=== PATIENT | male | born 1975 ===

== ENCOUNTER 2019-10-29 04:11 | Emergency (ER) | payer SELFPAY ==
--- NOTE | 2019-10-29 05:27 | Cat Scan Report ---
CT HEAD WITHOUT CONTRAST INDICATION : Headache. Altered mental status. TECHNIQUE: Axial, coronal and sagittal CT imaging was performed from the skull apex through the skul l base without contrast. All CT scans at this location are performed using CT dose reduction for ALA RA by means of automated exposure control. COMPARISON: None available. FINDINGS: PARENCHYMA: No mass, midline shift, hemorrhage, extraaxial collection or acute territorial infarctio n. VENTRICLES: Symmetric and normal in size. SOFT TISSUES: No significant abnormality of the included soft tissues/orbits. BONES: No acute osseous abnormality. SINUSES: No significant abnormality. ADDITIONAL FINDINGS: None. IMPRESSION: 1. No acute intracranial abnormality. Signer Name: Delfino Sainz MD Signed: 10/29/2019 5:22 AM Workstation Name: [id number]
[2019-10-29 05:35] LABS: Basophils # (Auto) 0.1 K/mm3 (0.0-0.1); Eosinophils # (Auto) 0.2 K/mm3 (0.0-0.4); Eosinophils % (Auto) 1.9 % (0.0-4.3); Hematocrit 38.8 % (35.5-45.6); Hemoglobin 13.2 gm/dl (11.8-15.2); Lymphocytes # (Auto) 1.5 K/mm3 (1.2-5.4); Lymphocytes % (Auto) 17.4 % (13.4-35.0); Mean Corpuscular HGB Conc 34 % (32-34); Mean Corpuscular Volume 90 fl (84-94); Monocytes # (Auto) 0.6 K/mm3 (0.0-0.8); Monocytes % (Auto) 7.2 % (0.0-7.3); Platelet Count 343 K/mm3 (140-440); Red Blood Count 4.29 M/mm3 (3.65-5.03); Red Cell Distribution Width 13.8 % (13.2-15.2)
[2019-10-29 05:46] LABS: Bilirubin,Urine NEG (Negative); Blood,Urine NEG (Negative); Color,Urine Yellow (Yellow); Mucus,Urine FEW /HPF; Protein,Urine <15 mg/dL mg/dL (Negative); Urobilinogen,Urine < 2.0 mg/dL (<2.0)
[2019-10-29 05:48] LABS: BUN/Creatinine Ratio 23; Blood Urea Nitrogen 18 mg/dL (9-20); Calcium 8.7 mg/dL (8.4-10.2); Hemolysis Index 3
[2019-10-29 05:54] LABS: Benzodiazepines Screen,Urine PRESUMPTIVE NEGATIVE; Cocaine Screen,Urine PRESUMPTIVE NEGATIVE; Methadone Screen,Urine PRESUMPTIVE NEGATIVE; Opiate Screen,Urine PRESUMPTIVE NEGATIVE
[2019-10-29 06:11] LABS: Amphetamine Screen,Urine PRESUMPTIVE POSITIVE; Cannabinoid Screen,Urine PRESUMPTIVE POSITIVE
--- NOTE | 2019-10-29 10:34 | Emergency Department Report ---
ED Psych HPI - General Chief Complaint: Altered Mental Status Stated Complaint: HEADACHE Time Seen by Provider: 10/29/19 09:18 Source: business taxes specialist Mode of arrival: Stretcher Limitations: Language Barrier (Checkering Machine Operator present Ana M) - History of Present Illness Initial Comments: 44-year-old male presents emergency department via EMS complaining having a myriad of issues involving home and work. Complications involving his sister and his brother complicating his underlying psychological issues at this point he states he is hearing voices and seeing objects that are telling him to hurt his brother and sister and he plans on following up with his therapist with how he is being treated. States that he does smoke marijuana to try to calm the thoughts and to keep him focused so that he can complete his daily tasks and work activities however at the smoking marijuana earlier this morning it did not resolve his urges. He reports no headache, reports no dizziness no blurred vision no nausea no vomiting no fever no chills no sweats no tinnitus. Associated Psychiatric Symptoms: homicidal ideation, auditory hallucinations History of same: Yes Quality: constant Improves With: other (Cannabis) Context: recent drug abuse, significant life stressor Associated Symptoms: denies other symptoms Treatments Prior to Arrival: none - Related Data Home Medications Medication Instructions Recorded Confirmed Last Taken No Known Home Medications [No 10/29/19 10/29/19 Unknown Reported Home Medications] Allergies Allergy/AdvReac Type Severity Reaction Status Date / Time No Known Allergies Allergy Verified 10/29/19 10:47 ED Review of Systems ROS: Stated complaint: HEADACHE Other details as noted in HPI Comment: All other systems reviewed and negative ED Past Medical Hx - Past Medical History Previous Medical History?: No - Surgical History Past Surgical History?: No - Social History Smoking Status: Current Every Day Smoker Substance Use Type: Marijuana - Medications Home Medications: Home Medications Medication Instructions Recorded Confirmed Last Taken Type No Known Home Medications [No 10/29/19 10/29/19 Unknown History Reported Home Medications] ED Physical Exam - General Limitations: Language Barrier General appearance: alert, in no apparent distress - Head Head exam: Present: atraumatic, normocephalic - Eye Eye exam: Present: normal appearance - ENT ENT exam: Present: mucous membranes moist - Neck Neck exam: Present: normal inspection - Respiratory Respiratory exam: Present: normal lung sounds bilaterally. Absent: respiratory distress - Cardiovascular Cardiovascular Exam: Present: regular rate, normal rhythm. Absent: systolic murmur, diastolic murmur, rubs, gallop - GI/Abdominal GI/Abdominal exam: Present: soft, normal bowel sounds - Rectal Rectal exam: Present: deferred - Extremities Exam Extremities exam: Present: normal inspection - Back Exam Back exam: Present: normal inspection - Neurological Exam Neurological exam: Present: alert, oriented X3, CN II-XII intact - Psychiatric Psychiatric exam: Present: normal affect, anxious, homicidal ideation - Skin Skin exam: Present: warm, dry, intact, normal color. Absent: rash ED Course Vital Signs 10/29/19 10/29/19 04:18 09:15 Temperature 97.7 F Pulse Rate 77 88 Respiratory 18 16 Rate Blood Pressure 105/63 Blood Pressure 106/69 [Left] O2 Sat by Pulse 100 96 Oximetry ED Medical Decision Making - Lab Data Result diagrams: 10/29/19 05:12 10/29/19 05:12 Lab Results 10/29/19 10/29/19 10/29/19 Range/Units 05:12 05:12 05:12 WBC (4.5-11.0) K/mm3 RBC (3.65-5.03) M/mm3 Hgb (11.8-15.2) gm/dl Hct (35.5-45.6) % MCV (84-94) fl MCH (28-32) pg MCHC (32-34) % RDW (13.2-15.2) % Plt Count (140-440) K/mm3 Lymph % (Auto) (13.4-35.0) % Carolina % (Auto) (0.0-7.3) % Eos % (Auto) (0.0-4.3) % Baso % (Auto) (0.0-1.8) % Lymph # (1.2-5.4) K/mm3 Carolina # (0.0-0.8) K/mm3 Eos # (0.0-0.4) K/mm3 Baso # (0.0-0.1) K/mm3 Seg Neutrophils % (40.0-70.0) % Seg Neutrophils # (1.8-7.7) K/mm3 Sodium 138 (137-145) mmol/L Potassium 4.2 (3.6-5.0) mmol/L Chloride 101.9 (98-107) mmol/L Carbon Dioxide 24 (22-30) mmol/L Anion Gap 16 mmol/L BUN 18 (9-20) mg/dL Creatinine 0.8 (0.8-1.5) mg/dL Estimated GFR > 60 ml/min BUN/Creatinine Ratio 23 % Glucose 100 (75-100) mg/dL Calcium 8.7 (8.4-10.2) mg/dL Urine Color (Yellow) Urine Turbidity (Clear) Urine pH (5.0-7.0) Ur Specific Greene (1.003-1.030) Urine Protein (Negative) mg/dL Urine Glucose (UA) (Negative) mg/dL Urine Ketones (Negative) mg/dL Urine Blood (Negative) Urine Nitrite (Negative) Urine Bilirubin (Negative) Urine Urobilinogen (<2.0) mg/dL Ur Leukocyte Esterase (Negative) Urine WBC (Auto) (0.0-6.0) /HPF Urine RBC (Auto) (0.0-6.0) /HPF Urine Mucus /HPF Salicylates < 0.3 L (2.8-20.0) mg/dL Urine Opiates Screen Urine Methadone Screen Acetaminophen < 5.0 L (10.0-30.0) ug/mL Ur Barbiturates Screen Ur Phencyclidine Scrn Ur Amphetamines Screen U Benzodiazepines Scrn Urine Cocaine Screen U Marijuana (THC) Screen Drugs of Abuse Note Plasma/Serum Alcohol (0-0.07) % 10/29/19 10/29/19 10/29/19 Range/Units 05:12 05:12 Unknown WBC 8.7 (4.5-11.0) K/mm3 RBC 4.29 (3.65-5.03) M/mm3 Hgb 13.2 (11.8-15.2) gm/dl Hct 38.8 (35.5-45.6) % MCV 90 (84-94) fl MCH 31 (28-32) pg MCHC 34 (32-34) % RDW 13.8 (13.2-15.2) % Plt Count 343 (140-440) K/mm3 Lymph % (Auto) 17.4 (13.4-35.0) % Carolina % (Auto) 7.2 (0.0-7.3) % Eos % (Auto) 1.9 (0.0-4.3) % Baso % (Auto) 1.0 (0.0-1.8) % Lymph # 1.5 (1.2-5.4) K/mm3 Carolina # 0.6 (0.0-0.8) K/mm3 Eos # 0.2 (0.0-0.4) K/mm3 Baso # 0.1 (0.0-0.1) K/mm3 Seg Neutrophils % 72.5 H (40.0-70.0) % Seg Neutrophils # 6.3 (1.8-7.7) K/mm3 Sodium (137-145) mmol/L Potassium (3.6-5.0) mmol/L Chloride (98-107) mmol/L Carbon Dioxide (22-30) mmol/L Anion Gap mmol/L BUN (9-20) mg/dL Creatinine (0.8-1.5) mg/dL Estimated GFR ml/min BUN/Creatinine Ratio % Glucose (75-100) mg/dL Calcium (8.4-10.2) mg/dL Urine Color Yellow (Yellow) Urine Turbidity Clear (Clear) Urine pH 6.0 (5.0-7.0) Ur Specific Greene 1.017 (1.003-1.030) Urine Protein <15 mg/dl (Negative) mg/dL Urine Glucose (UA) Neg (Negative) mg/dL Urine Ketones Neg (Negative) mg/dL Urine Blood Neg (Negative) Urine Nitrite Neg (Negative) Urine Bilirubin Neg (Negative) Urine Urobilinogen < 2.0 (<2.0) mg/dL Ur Leukocyte Esterase Neg (Negative) Urine WBC (Auto) 1.0 (0.0-6.0) /HPF Urine RBC (Auto) 2.0 (0.0-6.0) /HPF Urine Mucus Few /HPF Salicylates (2.8-20.0) mg/dL Urine Opiates Screen Urine Methadone Screen Acetaminophen (10.0-30.0) ug/mL Ur Barbiturates Screen Ur Phencyclidine Scrn Ur Amphetamines Screen U Benzodiazepines Scrn Urine Cocaine Screen U Marijuana (THC) Screen Drugs of Abuse Note Plasma/Serum Alcohol < 0.01 (0-0.07) % 10/29/19 Range/Units Unknown WBC (4.5-11.0) K/mm3 RBC (3.65-5.03) M/mm3 Hgb (11.8-15.2) gm/dl Hct (35.5-45.6) % MCV (84-94) fl MCH (28-32) pg MCHC (32-34) % RDW (13.2-15.2) % Plt Count (140-440) K/mm3 Lymph % (Auto) (13.4-35.0) % Carolina % (Auto) (0.0-7.3) % Eos % (Auto) (0.0-4.3) % Baso % (Auto) (0.0-1.8) % Lymph # (1.2-5.4) K/mm3 [place] # (0.0-0.8) K/mm3 Eos # (0.0-0.4) K/mm3 Baso # (0.0-0.1) K/mm3 Seg Neutrophils % (40.0-70.0) % Seg Neutrophils # (1.8-7.7) K/mm3 Sodium (137-145) mmol/L Potassium (3.6-5.0) mmol/L Chloride (98-107) mmol/L Carbon Dioxide (22-30) mmol/L Anion Gap mmol/L BUN (9-20) mg/dL Creatinine (0.8-1.5) mg/dL Estimated GFR ml/min BUN/Creatinine Ratio % Glucose (75-100) mg/dL Calcium (8.4-10.2) mg/dL Urine Color (Yellow) Urine Turbidity (Clear) Urine pH (5.0-7.0) Ur Specific Greene (1.003-1.030) Urine Protein (Negative) mg/dL Urine Glucose (UA) (Negative) mg/dL Urine Ketones (Negative) mg/dL Urine Blood (Negative) Urine Nitrite (Negative) Urine Bilirubin (Negative) Urine Urobilinogen (<2.0) mg/dL Ur Leukocyte Esterase (Negative) Urine WBC (Auto) (0.0-6.0) /HPF Urine RBC (Auto) (0.0-6.0) /HPF Urine Mucus /HPF Salicylates (2.8-20.0) mg/dL Urine Opiates Screen Presumptive negative Urine Methadone Screen Presumptive negative Acetaminophen (10.0-30.0) ug/mL Ur Barbiturates Screen Presumptive negative Ur Phencyclidine Scrn Presumptive negative Ur Amphetamines Screen Presumptive positive U Benzodiazepines Scrn Presumptive negative Urine Cocaine Screen Presumptive negative U Marijuana (THC) Screen Presumptive positive Drugs of Abuse Note Disclamer Plasma/Serum Alcohol (0-0.07) % - Medical Decision Making This patient presents to the emergency department with symptoms consistent with an underlying psychiatric disorder most likely acute psychosis. Differential diagnosis includes schizophrenia, depression, illicit drug dependency, ma lignancy. The patient's presentation is not consistent with acute organic causes to include delirium, dementia or drug-induced disorders. Given HPI suspect this patient is homicidal and gravely disabled and will require psychiatric care.. We consulted psychiatry to evaluate the patient for potential hold and obtain labs for medical clearance. After evaluation in the emergency department for a psychiatric disease, no findings exacerbating or causing the psychiatric complaint. This patient de monstrates no contributing medical instability or "condition facilitating this psychiatric presentation. See the accompanying mental health corporate responsibility officer's note for more detail Critical care attestation.: If time is entered above; I have spent that time in minutes in the direct care of this critically ill patient, excluding procedure time. ED Disposition Clinical Impression: Psychosis Is pt being admited?: No Does the pt Need Aspirin: No Condition: Stable Instructions: Cannabis Abuse (ED), Mood Disorders (ED), Medical Clearance for Psychiatric Care (ED) Referrals: PRIMARY CARE, [Primary Care Provider] - 3-5 Days
--- NOTE | 2019-10-30 14:53 | Consultation ---
History of Present Illness - Reason for Consult Consult date: 10/30/19 Reason for consult: psychiatric assessment - History of Present Psychiatric Illness mr wilson is a 44-year-old male he is alert oriented x1 the patient is noted irritable and refuses to answer questions, he states, "I told you guys everything already. He then stated, "my friend called 911 because he think i was hearing voices". The patient denies suicidal or homicidal ideations, 80s denies visual or auditory hallucinations. The patient denies being depressed he states, by showing me his muscles "I am a strong man". This feature writer continue to ask the patient questions but the patient states, "what do you guys think i am not answering any questions I will stay here as long as you want me to stay". The patient is not forthcoming with answers, the patient became agitated and hyperverbal unable to ask further questions. The patient reports that he smokes marijuana daily to calm himself. PAST PSYCHIATRIC HISTORY: Diagnoses: Acute psychosis Suicide attempts or Self-harm behavior: denies Prior psychiatric hospitalizations: denies Substance Abuse history: Marijuana Previous psychiatric medications tried: Denies Outpatient treatment: Denies PAST MEDICAL HISTORY: Family Psychiatric History None reported or documented SOCIAL HISTORY Marital Status: Single Living Arrangements: Self Employment Status: Unemployed Access to guns/weapons: Denies Education: Refused to answer History of Abuse: Denies Legal History: refuse to answer ROS: Constitutional: Negative for weight loss ENT: Negative for stridor Respiratory: Negative for cough or hemoptysis All other systems reviewed and are negative MENTAL STATUS General Appearance and Behavior: age appropriate, good eye contact, cooperative with questioning and polite Cooperation: uncooperative Psychomotor Behavior: rocking Mood: agitated Affect and affective range: Congruent with stated mood Thought Process: Fluent/Logical and Goal-directed Thought Content: Within reality Speech: hyperverbal Intellectual Functioning Average Suicidal Ideation: Denies SI Homicidal Ideation: Denies HI Impulse Control: intact Insight and Judgment: poor Memory: Normal Attention: Normal RECOMMENDATIONS MEDICATIONS: Risks, benefits and alternatives of medications discussed with the patient, questions answered and consent obtained from patient. PSYCHOTHERAPY: Supportive psychotherapy provided MEDICAL: Per primary team DELIRIUM PRECAUTIONS: Please re-orient patient frequently, keep lights on during the day, and minimize benzodiazepines and opiates as these medications could worsen patient's confusion. PLUSH DRESSER: DISPOSITION: no indication for acute inpatient psychiatric hospitalization at this time, will see the patient tomorrow to see if he will open up further. LEGAL STATUS: FOLLOW-UP: Will follow Medications and Allergies Allergies Allergy/AdvReac Type Severity Reaction Status Date / Time No Known Allergies Allergy Verified 10/29/19 10:47 Home Medications Medication Instructions Recorded Confirmed Last Taken Type No Known Home Medications [No 10/29/19 10/29/19 Unknown History Reported Home Medications] Mental Status Exam - Vital signs Last Vital Signs Temp 97.9 F 10/30/19 13:00 Pulse 62 10/30/19 13:00 Resp 18 10/30/19 13:00 BP 110/68 10/30/19 13:00 Pulse Ox 98 10/30/19 13:00 Results Result Diagrams: 10/29/19 05:12 10/29/19 05:12 All other labs normal.
--- NOTE | 2019-10-31 13:21 | Progress Note ---
Subjective - Reason for Consult Consult date: 10/31/19 Reason for consult: psychiatric assessment - Chief Complaint Chief complaint: mr wilson is a 44-year-old male he is alert oriented x1 in bed with eyes closed easily aroused. The patient is noted irritable and refuses to answer questions he states, your back I am still the same nothing is change, I do not trust you guys". When asked about suicidal ideation the patient stated, "what stupid question is that, I am the same person go away". Patient got up and start making his bed continue cursing in his [place] language. Unable to interview patient further. The patient is easily offended he is defensive hostile and aggressive and noted with anxiety. Per chart family report patient responding to internal stimuli. ROS: Constitutional: Negative for weight loss ENT: Negative for stridor Respiratory: Negative for cough or hemoptysis All other systems reviewed and are negative MENTAL STATUS General Appearance and Behavior: age appropriate, good eye contact, Cooperation: uncooperative Psychomotor Behavior: pacing Mood: agitated Affect and affective range: Congruent with stated mood Thought Process: concrete Thought Content: guarded Speech: hyperverbal Intellectual Functioning Average Suicidal Ideation: Denies SI Homicidal Ideation: Denies HI Impulse Control: intact Insight and Judgment: poor Memory: Normal Attention: Normal RECOMMENDATIONS MEDICATIONS: Start Risperdal 0.25 mg twice daily Start BuSpar 7.5 mg twice daily Melatonin 10 mg as needed Risks, benefits and alternatives of medications discussed with the patient, questions answered and consent obtained from patient. PSYCHOTHERAPY: Supportive psychotherapy provided MEDICAL: Per primary team DELIRIUM PRECAUTIONS: Please re-orient patient frequently, keep lights on during the day, and minimize benzodiazepines and opiates as these medications could worsen patient's confusion. CLINICAL SUPPORT ASSOCIATE: DISPOSITION: Indication for inpatient psychiatric hospitalization at this time patient is paranoid. aggressive LEGAL STATUS: 1013 FOLLOW-UP: Will follow Mental Status Exam - Vital signs Last Vital Signs Temp 98.4 F 10/31/19 07:00 Pulse 56 L 10/31/19 07:00 Resp 14 10/31/19 07:00 BP 110/63 10/31/19 07:00 Pulse Ox 98 10/31/19 07:00
[2019-10-31] MEDS ORDERED: MELATONIN 5 MG TAB PO PRN (13:38)
[2019-10-31] MEDS ORDERED: busPIRone 5 MG TAB PO SCH (22:00)
[2019-10-31] MEDS ORDERED: risperiDONE 0.25 MG TAB PO SCH (22:00)
[2019-11-01 02:01] VITALS: BP 110/60
== END 2019-11-01 02:45 ==
LOC: ED 04:11
DX: R44.0 Auditory hallucinations (principal); R45.850 Homicidal ideations; R51 Headache; F17.200 Nicotine dependence, unspecified, uncomplicated; F12.10 Cannabis abuse, uncomplicated
CPT/HCPCS: 36415; 70450; 80048; 80307; 80320; 81001; 85025; G0480

== ENCOUNTER 2020-11-01 12:45 | Emergency (ER) | payer SELFPAY ==
[2020-11-01 13:13] VITALS: BP 129/75
[2020-11-01] MEDS ORDERED: DIPHtheria,PERTUSSIS(ACELL),TETANUS VACCINE/PF 0.5 ML VIAL IM ONE (13:23)
[2020-11-01] MEDS ORDERED: NEOMY 3.5 MG/BACIT 400 UNITS/POLY B 5000 UNITS/GM OINT PACKET TP ONE (13:23)
--- NOTE | 2020-11-01 13:35 | Event Note ---
Face to Face: For this encounter I have reviewed the PA/MONITOR AND STORAGE BIN TENDER documentation, treatment plan, medical decision making, and I had face to face time with this patient. I evaluated patient alongside my colleague. Patient was alert and oriented x4. However he did have labile mood. He seemed to laugh inappropriately. However he was able to give appropriate history. Urine toxicology obtained 1 year ago at this hospital revealed that patient was positive for cocaine and methamphetamine. Patient is alert and oriented. Exam is without difficulty. He is appropriate for discharge. He told my colleagues he no longer wanted to be a man. No suicidal homicidal ideation. I do suspect that patient likely use illicit drugs prior to arrival. He is clinically sober appropriate for home at this time.
[2020-11-01] MEDS ORDERED: SULFAMETHOXAZOLE/TRIMETHOPRIM 800/160MG DS TAB PO SCH (14:00)
--- NOTE | 2020-11-01 14:00 | Emergency Department Report ---
- General Chief complaint: Urogenital-Male Stated complaint: LFT FOREARM SPIDER BITE Time Seen by Provider: 11/01/20 13:22 Source: patient, EMS Mode of arrival: Stretcher Limitations: No Limitations - History of Present Illness Initial comments: pt is a 45 yo male who presents to the ED with c/o a possible abscess to the left forearm that began a few days ago. he states he took a needle and opened and drained it. he states it "started as a pimple" he denies seeing or feeling anything bite him. he states that it began increasing in swelling and redness. he denies any fever, n/v/d, chills, body aches. he is unsure of last tetanus immunization. he states that he also "tied a string on his penis" to become a women but states he "does not want to become a women." he denies any SI or HI, he states he is just "tired." PMHx of polysubstance abuse. no allergies to meds. - Related Data Previous Rx's Medication Instructions Recorded Last Taken Type Neomycin/Bacitracin/Polymyxinb 1 applicatio TP BID #14 oint...g. 11/01/20 Unknown Rx [Triple Antibiotic Ointment] Sulfamethoxazole/Trimethoprim 1 each PO BID 10 Days #20 tablet 11/01/20 Unknown Rx [Bactrim DS TAB] Allergies Allergy/AdvReac Type Severity Reaction Status Date / Time No Known Allergies Allergy Verified 10/29/19 10:47 Abscess Boil HPI - HPI Chief Complaint: Urogenital-Male Stated Complaint: LFT FOREARM SPIDER BITE Time Seen by Provider: 11/01/20 13:22 Home Medications: Previous Rx's Medication Instructions Recorded Last Taken Type Neomycin/Bacitracin/Polymyxinb 1 applicatio TP BID #14 oint...g. 11/01/20 Unknown Rx [Triple Antibiotic Ointment] Sulfamethoxazole/Trimethoprim 1 each PO BID 10 Days #20 tablet 11/01/20 Unknown Rx [Bactrim DS TAB] Allergies/Adverse Reactions: Allergies Allergy/AdvReac Type Severity Reaction Status Date / Time No Known Allergies Allergy Verified 10/29/19 10:47 ED Review of Systems ROS: Stated complaint: LFT FOREARM SPIDER BITE Other details as noted in HPI Comment: All other systems reviewed and negative ED Past Medical Hx - Past Medical History Previous Medical History?: No - Surgical History Past Surgical History?: No - Social History Smoking Status: Never Smoker Substance Use Type: Alcohol - Medications Home Medications: Home Medications Medication Instructions Recorded Confirmed Last Taken Type Neomycin/Bacitracin/Polymyxinb 1 applicatio TP BID #14 oint...g. 11/01/20 Unk nown Rx [Triple Antibiotic Ointment] Sulfamethoxazole/Trimethoprim 1 each PO BID 10 Days #20 tablet 11/01/20 Unknown Rx [Bactrim DS TAB] ED Physical Exam - General Limitations: No Limitations General appearance: alert, in no apparent distress - Head Head exam: Present: atraumatic, normocephalic - Eye Eye exam: Present: normal appearance - ENT ENT exam: Present: mucous membranes moist - Respiratory Respiratory exam: Absent: respiratory distress, accessory muscle use - exam: Present: other (anesthesiology fellow: abbey kc, there is a white string present around the glans penis, no signs of necrosis, there is some abrasions around the glans, pt is uncircumcised, no signs of phimosis or paraphimosis, no invovlement of the testicles) - Neurological Exam Neurological exam: Present: alert, oriented X3 - Psychiatric Psychiatric exam: Present: normal affect, normal mood - Skin Skin exam: Present: warm, dry, other (2 cm area of induration present to the right forearm, no drainage, no fluctuance, there is a 10 cm area of surrounding erythema, no necrosis) ED Course Vital Signs 11/01/20 13:09 Temperature 98.3 F Pulse Rate 94 H Respiratory 18 Rate Blood Pressure 129/75 O2 Sat by Pulse 98 Oximetry ED Medical Decision Making - Medical Decision Making pt is a 45 yo male who presents to the ED with c/o a possible abscess to the left forearm that began a few days ago. he states he took a needle and opened and drained it. he states it "started as a pimple" he denies seeing or feeling anything bite him. he states that it began increasing in swelling and redness. he denies any fever, n/v/d, chills, body aches. he is unsure of last tetanus immunization. he states that he also "tied a string on his penis" to become a women but states he "does not want to become a women." he denies any SI or HI, he states he is just "tired." PMHx of polysubstance abuse. no allergies to meds. VSS. pt is A&O x4, answers questions. on exam: 2 cm area of induration present to the right forearm, no drainage, no fluctuance, there is a 10 cm area of surrounding erythema, no necrosis. Examination does appear consistent with cellulitis and possible spider bite, no drainable abscess at this time. anesthesiology fellow: abbey kc, there is a white string present around the glans penis, no signs of necrosis, there is some abrasions around the glans, pt is uncircumcised, no signs of phimosis or paraphimosis, no invovlement of the testicles. The string is tied loosely and is easily able to be stretched, no signs of necrosis, no signs of ischemia, it has caused abrasion from the string rubbing against the glans penis, able to easily cut off string and triple antibiotic was placed by nurse. Discussed case with Dr. Diamond Olmos, ER attending who evaluated patient at bedside, please see her note. She states that patient does not meet inpatient psych criteria and she believes this is likely related to his polysubstance abuse and advised that patient is stable for discharge and to follow-up as an outpatient. Patient given Tdap and Bactrim while in the emergency department. Given prescription for Bactrim and triple antibiotic ointment. Discussed the importance of follow-up with patient, discussed that that needed to be reevaluated in the next 3 days. Advised patie nt to return immediately if began experiencing worsening pain, worsening swelling, worsening redness, fever, chills, etc., he verbalized understanding. Advised patient please use medication as prescribed. follow up with a primary care doctor for reexamination. return to the emergency room for any new or worsening symptoms. Critical care attestation.: If time is entered above; I have spent that time in minutes in the direct care of this critically ill patient, excluding procedure time. ED Disposition Clinical Impression: Cellulitis of left forearm Abrasion of penis Qualifiers: Encounter type: initial encounter Qualified Code(s): S30.812A - Abrasion of penis, initial encounter Disposition: TO HOME OR SELFCARE Is pt being admited?: No Does the pt Need Aspirin: No Condition: Stable Instructions: Cellulitis, Adult, [id number], Abrasion, [id number] Additional Instructions: please use medication as prescribed. follow up with a primary care doctor for reexamination. return to the emergency room for any new or worsening symptoms. Prescriptions: Sulfamethoxazole/Trimethoprim [Bactrim DS TAB] 1 each PO BID 10 Days #20 tablet Neomycin/Bacitracin/Polymyxinb [Triple Antibiotic Ointment] 1 applicatio TP BID #14 oint...g. Referrals: PRIMARY MD JOVON [Primary Care Provider] - 2-3 Days ZAK JOSHI MD [Staff Physician] - 2-3 Days [facility] [Provider Group] - 2-3 Days Time of Disposition: 14:04 Print Language: BAHRAINI
== END 2020-11-01 15:00 | disposition home or self-care (01) ==
LOC: ED 12:45
DX: S30.812A Abrasion of penis, initial encounter (principal); L03.114 Cellulitis of left upper limb; Z79.899 Other long term (current) drug therapy; X58.XXXA Exposure to other specified factors, initial encounter; Y93.89 Activity, other specified; Y92.89 Other specified places as the place of occurrence of the external cause; Y99.8 Other external cause status
CPT/HCPCS: 90471; 90715; 99283; A6250

== ENCOUNTER 2021-07-01 23:36 | Emergency (ER) | payer SELFPAY ==
--- NOTE | 2021-07-02 01:33 | Emergency Department Report ---
ED Psych HPI - General Chief Complaint: Psych Stated Complaint: HEADACHE Time Seen by Provider: 07/02/21 01:13 Source: media specialist Mode of arrival: Ambulatory - History of Present Illness Initial Comments: 46-year-old male presents to ED for evaluation. Patient states he believes his family is following him, watching him, and controlling him. Patient states he found a cell phone in his freezer. Patient states his brother is using a cell phone to control his movements. Patient also reports auditory hallucinations. States he is unable to get away from the voices whenever he is at home. Denies any SI or HI. He reports marijuana use. MD Complaint: other -: unknown Associated Psychiatric Symptoms: auditory hallucinations Improves With: none Worsens With: none Associated Symptoms: denies other symptoms Treatments Prior to Arrival: none - Related Data Previous Rx's Medication Instructions Recorded Last Taken Type Neomycin/Bacitracin/Polymyxinb 1 applicatio TP BID #14 oint...g. 11/01/20 Unknown Rx [Triple Antibiotic Ointment] Sulfamethoxazole/Trimethoprim 1 each PO BID 10 Days #20 tablet 11/01/20 Unknown Rx [Bactrim DS TAB] Allergies Allergy/AdvReac Type Severity Reaction Status Date / Time No Known Allergies Allergy Verified 10/29/19 10:47 ED Review of Systems ROS: Stated complaint: HEADACHE Other details as noted in HPI Comment: All other systems reviewed and negative Psychiatric: auditory hallucinations. denies: visual hallucinations, homicidal thoughts, suicidal thoughts ED Past Medical Hx - Past Medical History Previous Medical History?: No - Surgical History Past Surgical History?: No - Social History Smoking Status: Current Every Day Smoker Substance Use Type: Alcohol - Medications Home Medications: Home Medications Medication Instructions Recorded Confirmed Last Taken Type Neomycin/Bacitracin/Polymyxinb 1 applicatio TP BID #14 oint...g. 11/01/20 07/02/21 Unknown Rx [Triple Antibiotic Ointment] Sulfamethoxazole/Trimethoprim 1 each PO BID 10 Days #20 tablet 11/01/20 07/02/21 Unknown Rx [Bactrim DS TAB] ED Physical Exam - General Limitations: No Limitations General appearance: alert, in no apparent distress - Head Head exam: Present: atraumatic, normocephalic - Eye Eye exam: Present: normal appearance, EOMI - ENT ENT exam: Present: mucous membranes moist - Neck Neck exam: Present: normal inspection - Respiratory Respiratory exam: Present: normal lung sounds bilaterally. Absent: respiratory distress - Cardiovascular Cardiovascular Exam: Present: regular rate, normal rhythm - GI/Abdominal GI/Abdominal exam: Present: soft. Absent: distended, tenderness - Extremities Exam Extremities exam: Present: normal inspection - Neurological Exam Neurological exam: Present: alert, oriented X3 - Psychiatric Psychiatric exam: Present: normal affect, normal mood - Skin Skin exam: Present: warm, dry, intact, normal color ED Course Vital Signs 07/01/21 07/02/21 07/02/21 23:56 02:20 02:24 Temperature 97.9 F Pulse Rate 82 Respiratory 16 Rate Blood Pressure 146/82 Blood Pressure [Left] O2 Sat by Pulse 99 98 97 Oximetry 07/02/21 07/02/21 07/03/21 08:12 19:59 09:47 Temperature 97.7 F 98.5 F 98.5 F Pulse Rate 62 67 70 Respiratory 18 18 16 Rate Blood Pressure Blood Pressure 143/78 120/71 112/70 [Left] O2 Sat by Pulse 99 97 97 Oximetry ED Medical Decision Making - Lab Data Result diagrams: 07/02/21 01:35 07/02/21 01:35 - Medical Decision Making 46-year-old male presents to ED with psychosis. Vital signs normal. Labs are unremarkable. We are still awaiting a urine sample, however patient is medica lly clear for mental health evaluation. Will dispo per psych. Critical care attestation.: If time is entered above; I have spent that time in minutes in the direct care of this critically ill patient, excluding procedure time. ED Disposition Clinical Impression: Acute psychosis Disposition: [address] [place] [address] Is pt being admited?: No Condition: Stable Referrals: PRIMARY CARE, [Primary Care Provider] - 3-5 Days
[2021-07-02 02:43] LABS: Basophils # (Auto) 0.1 K/mm3 (0.0-0.1); Eosinophils # (Auto) 0.2 K/mm3 (0.0-0.4); Eosinophils % (Auto) 2.7 % (0.0-4.3); Hematocrit 38.1 % (35.5-45.6); Hemoglobin 13.5 gm/dl (11.8-15.2); Lymphocytes # (Auto) 2.8 K/mm3 (1.2-5.4); Lymphocytes % (Auto) 33.9 % (13.4-35.0); Mean Corpuscular HGB Conc 36 % (32-34); Mean Corpuscular Volume 92 fl (84-94); Monocytes # (Auto) 0.7 K/mm3 (0.0-0.8); Monocytes % (Auto) 8.9 % (0.0-7.3); Platelet Count 444 K/mm3 (140-440); Red Blood Count 4.14 M/mm3 (3.65-5.03); Red Cell Distribution Width 13.7 % (13.2-15.2)
[2021-07-02 02:47] LABS: BUN/Creatinine Ratio 25; Blood Urea Nitrogen 20 mg/dL (9-20); Calcium 9.7 mg/dL (8.4-10.2); Hemolysis Index 7
[2021-07-02 02:50] LABS: Alanine Aminotransferase 20 units/L (7-56); Albumin 4.3 g/dL (3.9-5)
[2021-07-02 02:51] LABS: Bilirubin,Direct < 0.2 mg/dL (0-0.2)
[2021-07-02 10:15] LABS: Bilirubin,Urine NEG (Negative); Blood,Urine NEG (Negative); Color,Urine Yellow (Yellow); Protein,Urine <15 mg/dL mg/dL (Negative); Urobilinogen,Urine < 2.0 mg/dL (<2.0); WBC,Urine < 1.0 /HPF (0.0-6.0)
[2021-07-02 10:23] LABS: Benzodiazepines Screen,Urine Negative; Cannabinoid Screen,Urine Negative; Cocaine Screen,Urine Negative; Methadone Screen,Urine Negative; Opiate Screen,Urine Negative
[2021-07-02 10:40] LABS: Amphetamine Screen,Urine Positive
--- NOTE | 2021-07-02 11:05 | Event Note ---
Date: 07/02/21 The patient was evaluated in the emergency department for symptoms described in the history of present illness. He/she was evaluated in the context of the global COVID-19 pandemic, which necessitated consideration that the patient might be at risk for infection with the virus that causes COVID-19. Institutional protocols and algorithms that pertain to the evaluation of patients at risk for COVID-19 are in a state of rapid change based on information released by regulatory bodies including the CDC and federal and state organizations. These policies and algorithms were followed during the patient's care in the emergency department. Please note that these policies, procedures and recommendations changed on a rapid basis. Laboratory studies, vital signs, nursing documentation, ER documentation, and psychiatric documentation are reviewed and appreciated. Nursing team reports no acute events this morning or concerns. The patient is awake and ambulating and does not appear to be in any acute distress. Nursing team reports no acute issues this morning, that he ate breakfast and ambulated without difficulty. The patient was deemed medically suitable for psychiatric disposition and placement during his initial ER evaluation. The patient continues to remain medically suitable for psychiatric placement and disposition. He is currently pending psychiatric consultation and placement. On my evaluation patient is awake and in no acute distress Psychiatry team has recommended 1013. This is ordered and filled out by myself. Covid swab pending. Vital Signs 07/01/21 07/02/21 07/02/21 23:56 02:20 02:24 Temperature 97.9 F Pulse Rate 82 Respiratory 16 Rate Blood Pressure 146/82 Blood Pressure [Left] O2 Sat by Pulse 99 98 97 Oximetry 07/02/21 08:12 Temperature 97.7 F Pulse Rate 62 Respiratory 18 Rate Blood Pressure Blood Pressure 143/78 [Left] O2 Sat by Pulse 99 Oximetry Lab Results 07/02/21 07/02/21 07/02/21 Range/Units 01:35 01:35 01:35 WBC 8.2 (4.5-11.0) K/mm3 RBC 4.14 (3.65-5.03) M/mm3 Hgb 13.5 (11.8-15.2) gm/dl Hct 38.1 (35.5-45.6) % MCV 92 (84-94) fl MCH 33 H (28-32) pg MCHC 36 H (32-34) % RDW 13.7 (13.2-15.2) % Plt Count 444 H (140-440) K/mm3 Lymph % (Auto) 33.9 (13.4-35.0) % Noble % (Auto) 8.9 H (0.0-7.3) % Eos % (Auto) 2.7 (0.0-4.3) % Baso % (Auto) 1.0 (0.0-1.8) % Lymph # (Auto) 2.8 (1.2-5.4) K/mm3 Noble # (Auto) 0.7 (0.0-0.8) K/mm3 Eos # (Auto) 0.2 (0.0-0.4) K/mm3 Baso # (Auto) 0.1 (0.0-0.1) K/mm3 Seg Neutrophils % 53.5 (40.0-70.0) % Seg Neutrophils # 4.4 (1.8-7.7) K/mm3 Sodium 136 L (137-145) mmol/L Potassium 4.1 (3.6-5.0) mmol/L Chloride 98.8 (98-107) mmol/L Carbon Dioxide 23 (22-30) mmol/L Anion Gap 18 mmol/L BUN 20 (9-20) mg/dL Creatinine 0.8 (0.8-1.3) mg/dL Estimated GFR > 60 ml/min BUN/Creatinine Ratio 25 % Glucose 101 H (75-100) mg/dL Calcium 9.7 (8.4-10.2) mg/dL Total Bilirubin (0.1-1.2) mg/dL Direct Bilirubin (0-0.2) mg/dL Indirect Bilirubin mg/dL AST (5-40) units/L ALT (7-56) units/L Alkaline Phosphatase (35-129) units/L Total Protein (6.3-8.2) g/dL Albumin (3.9-5) g/dL Albumin/Globulin Ratio % Urine Color (Yellow) Urine Turbidity (Clear) Urine pH (5.0-7.0) Ur Specific [place] (1.003-1.030) Urine Protein (Negative) mg/dL Urine Glucose (UA) (Negative) mg/dL Urine Ketones (Negative) mg/dL Urine Blood (Negative) Urine Nitrite (Negative) Urine Bilirubin (Negative) Urine Urobilinogen (<2.0) mg/dL Ur Leukocyte Esterase (Negative) Urine WBC (Auto) (0.0-6.0) /HPF Urine RBC (Auto) (0.0-6.0) /HPF Salicylates 1.4 L (2.8-20.0) mg/dL Urine Opiates Screen Urine Methadone Screen Acetaminophen (10.0-30.0) ug/mL Ur Barbiturates Screen Ur Phencyclidine Scrn Ur Amphetamines Screen U Benzodiazepines Scrn Urine Cocaine Screen U Marijuana (THC) Screen Plasma/Serum Alcohol (0-0.07) % 07/02/21 07/02/21 07/02/21 Range/Units 01:35 01:35 01:35 WBC (4.5-11.0) K/mm3 RBC (3.65-5.03) M/mm3 Hgb (11.8-15.2) gm/dl Hct (35.5-45.6) % MCV (84-94) fl MCH (28-32) pg MCHC (32-34) % RDW (13.2-15.2) % Plt Count (140-440) K/mm3 Lymph % (Auto) (13.4-35.0) % Noble % (Auto) (0.0-7.3) % Eos % (Auto) (0.0-4.3) % Baso % (Auto) (0.0-1.8) % Lymph # (Auto) (1.2-5.4) K/mm3 Noble # (Auto) (0.0-0.8) K/mm3 Eos # (Auto) (0.0-0.4) K/mm3 Baso # (Auto) (0.0-0.1) K/mm3 Seg Neutrophils % (40.0-70.0) % Seg Neutrophils # (1.8-7.7) K/mm3 Sodium (137-145) mmol/L Potassium (3.6-5.0) mmol/L Chloride (98-107) mmol/L Carbon Dioxide (22-30) mmol/L Anion Gap mmol/L BUN (9-20) mg/dL Creatinine (0.8-1.3) mg/dL Estimated GFR ml/min BUN/Creatinine Ratio % Glucose (75-100) mg/dL Calcium (8.4-10.2) mg/dL Total Bilirubin 0.40 (0.1-1.2) mg/dL Direct Bilirubin < 0.2 (0-0.2) mg/dL Indirect Bilirubin 0.2 mg/dL AST 36 (5-40) units/L ALT 20 (7-56) units/L Alkaline Phosphatase 125 (35-129) units/L Total Protein 7.8 (6.3-8.2) g/dL Albumin 4.3 (3.9-5) g/dL Albumin/Globulin Ratio 1.2 % Urine Color (Yellow) Urine Turbidity (Clear) Urine pH (5.0-7.0) Ur Specific [place] (1.003-1.030) Urine Protein (Negative) mg/dL Urine Glucose (UA) (Negative) mg/dL Urine Ketones (Negative) mg/dL Urine Blood (Negative) Urine Nitrite (Negative) Urine Bilirubin (Negative) Urine Urobilinogen (<2.0) mg/dL Ur Leukocyte Esterase (Negative) Urine WBC (Auto) (0.0-6.0) /HPF Urine RBC (Auto) (0.0-6.0) /HPF Salicylates (2.8-20.0) mg/dL Urine Opiates Screen Urine Methadone Screen Acetaminophen 5.0 L (10.0-30.0) ug/mL Ur Barbiturates Screen Ur Phencyclidine Scrn Ur Amphetamines Screen U Benzodiazepines Scrn Urine Cocaine Screen U Marijuana (THC) Screen Plasma/Serum Alcohol < 0.01 (0-0.07) % 07/02/21 07/02/21 Range/Units Unknown Unknown WBC (4.5-11.0) K/mm3 RBC (3.65-5.03) M/mm3 Hgb (11.8-15.2) gm/dl Hct (35.5-45.6) % MCV (84-94) fl MCH (28-32) pg MCHC (32-34) % RDW (13.2-15.2) % Plt Count (140-440) K/mm3 Lymph % (Auto) (13.4-35.0) % Noble % (Auto) (0.0-7.3) % Eos % (Auto) (0.0-4.3) % Baso % (Auto) (0.0-1.8) % Lymph # (Auto) (1.2-5.4) K/mm3 Noble # (Auto) (0.0-0.8) K/mm3 Eos # (Auto) (0.0-0.4) K/mm3 Baso # (Auto) (0.0-0.1) K/mm3 Seg Neutrophils % (40.0-70.0) % Seg Neutrophils # (1.8-7.7) K/mm3 Sodium (137-145) mmol/L Potassium (3.6-5.0) mmol/L Chloride (98-107) mmol/L Carbon Dioxide (22-30) mmol/L Anion Gap mmol/L BUN (9-20) mg/dL Creatinine (0.8-1.3) mg/dL Estimated GFR ml/min BUN/Creatinine Ratio % Glucose (75-100) mg/dL Calcium (8.4-10.2) mg/dL Total Bilirubin (0.1-1.2) mg/dL Direct Bilirubin (0-0.2) mg/dL Indirect Bilirubin mg/dL AST (5-40) units/L ALT (7-56) units/L Alkaline Phosphatase (35-129) units/L Total Protein (6.3-8.2) g/dL Albumin (3.9-5) g/dL Albumin/Globulin Ratio % Urine Color Yellow (Yellow) Urine Turbidity Clear (Clear) Urine pH 5.0 (5.0-7.0) Ur Specific [place] 1.020 (1.003-1.030) Urine Protein <15 mg/dl (Negative) mg/dL Urine Glucose (UA) Neg (Negative) mg/dL Urine Ketones Neg (Negative) mg/dL Urine Blood Neg (Negative) Urine Nitrite Neg (Negative) Urine Bilirubin Neg (Negative) Urine Urobilinogen < 2.0 (<2.0) mg/dL Ur Leukocyte Esterase Neg (Negative) Urine WBC (Auto) < 1.0 (0.0-6.0) /HPF Urine RBC (Auto) 2.0 (0.0-6.0) /HPF Salicylates (2.8-20.0) mg/dL Urine Opiates Screen Negative Urine Methadone Screen Negative Acetaminophen (10.0-30.0) ug/mL Ur Barbiturates Screen Negative Ur Phencyclidine Scrn Negative Ur Amphetamines Screen Positive U Benzodiazepines Scrn Negative Urine Cocaine Screen Negative U Marijuana (THC) Screen Negative Plasma/Serum Alcohol (0-0.07) %
--- NOTE | 2021-07-02 11:55 | Consultation ---
History of Present Illness - Reason for Consult Consult date: 07/02/21 Reason for consult: mental health evaluation - History of Present Psychiatric Illness per ED Note: 46-year-old male presents to ED for evaluation. Patient states he believes his family is following him, watching him, and controlling him. Patient states he found a cell phone in his freezer. Patient states his brother is using a cell phone to control his movements. Patient also reports auditory hallucinations. States he is unable to get away from the voices whenever he is at home. Denies any SI or HI. He reports marijuana use. Brandon wilson is a 46 year old male with unknown psychiatric history. In my interview with the patient,he is confused. The patient presents with disorganized thoughts, and paranoia. The patient is angry and gesturing. The patient states " I see them laughing , somebody trying to kill me." PAST PSYCHIATRIC HISTORY Diagnoses: unknown Suicide attempts or Self-harm behavior: Unknown Prior psychiatric hospitalizations: Unknown Substance Abuse history: Unknown Previous psychiatric medications tried: Unknown Outpatient treatment: Unknown PAST MEDICAL HISTORY: Family Psychiatric History: None reported or documented SOCIAL HISTORY Marital Status: Unknown Living Arrangements: unknown Employment Status: disabled Access to guns/weapons: None reported Education: Unknown History of Abuse: None reported Legal History: Ubknown REVIEW OF SYSTEMS Constitutional: Negative for weight loss ENT: Negative for stridor Respiratory: Negative for cough or hemoptysis All other systems reviewed and are negative MENTAL STATUS EXAMINATION General Appearance: Dressed appropriately. Behavior: Confused Mood:Angry Affect: Congruent with stated mood Speech: Normal tone, and pace Thought Process: Disorganized Thought content: Unknown Suicidal Ideation: Unable to assess Homicidal Ideation: unable to assess Hallucinations: Yes Delusions: Yes Insight and Judgment: Limited Memory/Cognition: Limited ASSESSMENT unspecified mood disorder-[id number] Treatment Plan Zyprexa 10mg daily continue 1013 Trazodone 50mg po qhs The patient to comply with previously prescribed medications Risks, benefits and alternatives of medications discussed with the patient, questions answered and consent obtained from patient. PSYCHOTHERAPY: Supportive psychotherapy provided MEDICAL: Per primary team DELIRIUM PRECAUTIONS: Please re-orient patient frequently, keep lights on during the day, and minimize benzodiazepines and opiates as these medications could worsen patient's confusion. FOOD AND BEVERAGE ASSOCIATE: Defer to primary DISPOSITION: Recommend acute inpatient psychiatric hospitalization at this time. FOLLOW-UP: Will follow. Case staffed with Dr. Darling Please contact with any questions and/or concerns. Thank you for the consult. Medications and Allergies Allergies Allergy/AdvReac Type Severity Reaction Status Date / Time No Known Allergies Allergy Verified 10/29/19 10:47 Home Medications Medication Instructions Recorded Confirmed Last Taken Type Neomycin/Bacitracin/Polymyxinb 1 applicatio TP BID #14 oint...g. 11/01/20 07/02/21 Unknown Rx [Triple Antibiotic Ointment] Sulfamethoxazole/Trimethoprim 1 each PO BID 10 Days #20 tablet 11/01/20 07/02/21 Unknown Rx [Bactrim DS TAB] Mental Status Exam - Vital signs Last Vital Signs Temp 97.7 F 07/02/21 08:12 Pulse 62 07/02/21 08:12 Resp 18 07/02/21 08:12 BP 143/78 07/02/21 08:12 Pulse Ox 99 07/02/21 08:12 Results Result Diagrams: 07/02/21 01:35 07/02/21 01:35 Abnormal lab results 07/02/21 07/02/21 07/02/21 Range/Units 01:35 01:35 01:35 MCH 33 H (28-32) pg MCHC 36 H (32-34) % Plt Count 444 H (140-440) K/mm3 [place] % (Auto) 8.9 H (0.0-7.3) % Sodium 136 L (137-145) mmol/L Glucose 101 H (75-100) mg/dL Salicylates 1.4 L (2.8-20.0) mg/dL Acetaminophen (10.0-30.0) ug/mL 07/02/21 Range/Units 01:35 MCH (28-32) pg MCHC (32-34) % Plt Count (140-440) K/mm3 [place] % (Auto) (0.0-7.3) % Sodium (137-145) mmol/L Glucose (75-100) mg/dL Salicylates (2.8-20.0) mg/dL Acetaminophen 5.0 L (10.0-30.0) ug/mL All other labs normal.
[2021-07-03 09:47] VITALS: BP 112/70
--- NOTE | 2021-07-03 09:53 | Progress Note ---
Subjective - Reason for Consult Consult date: 07/03/21 Reason for consult: Mental health evaluation - Chief Complaint Chief complaint: The patient was seen today, he continues to be paranoid and delusional. REVIEW OF SYSTEMS Constitutional: Negative for weight loss ENT: Negative for stridor Respiratory: Negative for cough or hemoptysis All other systems reviewed and are negative MENTAL STATUS EXAMINATION General Appearance: Dressed appropriately. Behavior: Confused Mood:"ok" Affect: Congruent with stated mood Speech: Normal tone, and pace Thought Process: Disorganized Thought content: paranoid Suicidal Ideation: Denies Homicidal Ideation:Denies Hallucinations: Yes Delusions: Yes Insight and Judgment: Limited Memory/Cognition: Limited ASSESSMENT unspecified mood disorder-F39 Treatment Plan Zyprexa 10mg daily continue 1013 Trazodone 50mg po qhs The patient to comply with previously prescribed medications Risks, benefits and alternatives of medications discussed with the patient, questions answered and consent obtained from patient. PSYCHOTHERAPY: Supportive psychotherapy provided MEDICAL: Per primary team DELIRIUM PRECAUTIONS: Please re-orient patient frequently, keep lights on during the day, and minimize benzodiazepines and opiates as these medications could worsen patient's confusion. BIOLOGICAL TECHNICAL OFFICER: Defer to primary DISPOSITION: Recommend acute inpatient psychiatric hospitalization at this time. FOLLOW-UP: Will follow. Case staffed with Dr. Darling Please contact with any questions and/or concerns. Thank you for the consult. Medications and Allergies Mental Status Exam - Vital signs Last Vital Signs Temp 98.5 F 07/03/21 09:47 Pulse 70 07/03/21 09:47 Resp 16 07/03/21 09:47 BP 112/70 07/03/21 09:47 Pulse Ox 97 07/03/21 09:47
--- NOTE | 2021-07-03 10:32 | Event Note ---
Date: 07/03/21 Patient is 46 years old male with history of schizophrenia. Patient presented to the ER with acute psychosis. Patient still paranoid and delusional. Vital signs stable. Waiting for inpatient psychiatric admission.
== END 2021-07-03 14:57 ==
LOC: ED 23:36 → EEVIPCON 23:36 → ED 07-03 14:57
DX: F23 Brief psychotic disorder (principal); F17.200 Nicotine dependence, unspecified, uncomplicated; F10.20 Alcohol dependence, uncomplicated; Z20.822 Contact with and (suspected) exposure to COVID-19
CPT/HCPCS: 36415; 80048; 80076; 80307; 81001; 85025; 99285; U0003; 80320; G0480